=== PATIENT | male | born 1960 | race Caucasian/White ===

== ENCOUNTER 2024-10-02 01:01 | Emergency (ER) | payer OTHER ==
[2024-10-02] MEDS ORDERED: Ondansetron PF 4 MG/2 ML Vial ONE (01:21)
[2024-10-02 01:25] LABS: #Basophils 0.1 thou/uL (0.0-0.2); #Eosinophils 0.1 thou/uL (0.0-0.7); #Lymphocytes 3.3 thou/uL (1.20-3.40); #Monocytes 0.7 thou/uL (0.11-0.59); #Neutrophils 4.4 thou/uL (1.40-6.50); %Basophils 1.4 % (0.0-1.0); %Eosinophils 1.4 % (0.0-10.0); %Lymphocytes 38.4 % (21.0-51.0); %Monocytes 7.8 % (0.0-10.0); %Neutrophils 50.9 % (42.0-75.0); Hematocrit 52.1 % (42.0-52.0); Hemoglobin 18.1 g/dL (14.0-18.0); Mean Corpuscular HGB CONC 34.6 g/dL (32.0-36.0); Mean Corpuscular Hemoglobin 30.3 pg (27.0-31.0); Mean Corpuscular Volume 87.5 fl (78.0-98.0); Mean Platelet Volume 7.4 fL (7.4-10.4); Platelet Count 296 10x3/uL (130-400); RBC Distribution Width 11.3 % (11.5-14.5); Red Blood Cell (RBC) Count 5.95 mill/uL (4.70-6.10); White Blood Cell (WBC) Count 8.6 10x3/uL (4.8-10.8)
[2024-10-02 01:36] LABS: ALT (SGPT) 102 U/L (8-55); AST (SGOT) 72 U/L (5-34); Albumin 4.5 g/dL (3.4-4.8); Alkaline Phosphatase 53 U/L (40-110); Anion Gap 18 mmol/L (10-20); BUN (Urea Nitrogen) 16 mg/dL (8.4-25.7); Bilirubin, Total 0.7 mg/dL (0.2-1.2); Calc. Creatinine Clearance 0 mL/min (70-130); Carbon Dioxide 24 mmol/L (23-31); Chloride 100 mmol/L (98-107); Estimated GFR 66; Globulin 3.3 g/dL (2.4-3.5); Glucose 376 mg/dL (80-115); PTT 25.8 sec (22.9-36.1); Potassium 4.2 mmol/L (3.5-5.1); Protein, Total 7.8 g/dL (5.8-8.1); Prothrombin Time 12.8 sec (12.0-14.7); Sodium 138 mmol/L (136-145)
[2024-10-02 01:44] LABS: Troponin I 0.506 ng/mL (< 0.028)
[2024-10-02] MEDS ORDERED: Sodium Chloride 0.9% 1,000 ML ONE (01:46)
[2024-10-02] MEDS ORDERED: Aspirin Chewable 81 MG TAB ONE (04:07)
[2024-10-02] MEDS ORDERED: Heparin 10,000 UNITS/ 10 ML VIAL ONE (04:08)
[2024-10-02] MEDS ORDERED: Heparin 25,000 units/D5W 500 ML ONE (04:08)
[2024-10-02] MEDS ORDERED: Nitroglycerin 50 MG/250 ML BOT 0 ML ONE (04:08)
[2024-10-02] MEDS ORDERED: Nitroglycerin 0.4 MG TAB 1 EACH ONE (04:08)
== END 2024-10-02 01:53 | disposition short-term general hospital (02) ==
LOC: NAV ERS 01:01
DX: I21.19 ST elevation (STEMI) myocardial infarction involving other coronary artery of inferior wall (principal)
CPT/HCPCS: 71045; 80053; 84484; 85025; 85610; 85730; 86850; 86900; 86901; 93005; 94760; 96374; 96375; J1644; J2405; J7030

== ENCOUNTER 2024-10-06 10:49 | Emergency (ER) | payer OTHER ==
[2024-10-06 11:08] LABS: #Basophils 0.1 thou/uL (0.0-0.2); #Eosinophils 0.1 thou/uL (0.0-0.7); #Lymphocytes 1.8 thou/uL (1.20-3.40); #Monocytes 0.7 thou/uL (0.11-0.59); #Neutrophils 3.4 thou/uL (1.40-6.50); %Basophils 1.5 % (0.0-1.0); %Eosinophils 1.9 % (0.0-10.0); %Lymphocytes 29.8 % (21.0-51.0); %Monocytes 11.4 % (0.0-10.0); %Neutrophils 55.5 % (42.0-75.0); Hematocrit 54.3 % (42.0-52.0); Mean Corpuscular HGB CONC 33.1 g/dL (32.0-36.0); Mean Corpuscular Hemoglobin 29.5 pg (27.0-31.0); Mean Corpuscular Volume 89.1 fl (78.0-98.0); Mean Platelet Volume 7.8 fL (7.4-10.4); Platelet Count 334 10x3/uL (130-400); RBC Distribution Width 11.7 % (11.5-14.5); Red Blood Cell (RBC) Count 6.09 mill/uL (4.70-6.10); White Blood Cell (WBC) Count 6.1 10x3/uL (4.8-10.8)
[2024-10-06 11:29] LABS: Prothrombin Time 12.8 sec (12.0-14.7)
[2024-10-06 11:36] LABS: ALT (SGPT) 47 U/L (8-55); AST (SGOT) 22 U/L (5-34); Albumin 4.3 g/dL (3.4-4.8); Alkaline Phosphatase 59 U/L (40-110); Anion Gap 16 mmol/L (10-20); BUN (Urea Nitrogen) 16 mg/dL (8.4-25.7); Bilirubin, Total 0.7 mg/dL (0.2-1.2); Calc. Creatinine Clearance 0 mL/min (70-130); Calcium 10.6 mg/dL (7.8-10.44); Carbon Dioxide 25 mmol/L (23-31); Chloride 99 mmol/L (98-107); Estimated GFR 73; Globulin 3.5 g/dL (2.4-3.5); Glucose 309 mg/dL (80-115); Potassium 4.8 mmol/L (3.5-5.1); Protein, Total 7.8 g/dL (5.8-8.1); Sodium 135 mmol/L (136-145)
[2024-10-06] MEDS ORDERED: Aspirin Chewable 81 MG TAB ONE (11:36)
[2024-10-06] MEDS ORDERED: Nitroglycerin 2% Ointment 1 INCH/1 GM Packet ONE (11:37)
[2024-10-06 14:58] LABS: Troponin I 2.908 ng/mL (< 0.028)
== END 2024-10-06 15:26 | disposition short-term general hospital (02) ==
LOC: NAV ERS 10:49
DX: I24.9 Acute ischemic heart disease, unspecified (principal); R79.89 Other specified abnormal findings of blood chemistry; F17.290 Nicotine dependence, other tobacco product, uncomplicated; I25.2 Old myocardial infarction; E11.9 Type 2 diabetes mellitus without complications
CPT/HCPCS: 71045; 80053; 84484; 85025; 85610; 85730; 93005; 94760

== ENCOUNTER 2024-10-14 00:17 | Emergency (ER) | payer OTHER ==
[2024-10-14] MEDS ORDERED: Nitroglycerin 0.4 MG TAB 1 EACH ONE (00:36)
[2024-10-14] MEDS ORDERED: Aspirin Chewable 81 MG TAB ONE (00:36)
[2024-10-14] MEDS ORDERED: Pantoprazole 40 MG VIAL ONE (00:37)
[2024-10-14 00:43] LABS: Hematocrit 53.9 % (42.0-52.0); Hemoglobin 18.2 g/dL (14.0-18.0); Mean Corpuscular HGB CONC 33.7 g/dL (32.0-36.0); Mean Corpuscular Hemoglobin 29.7 pg (27.0-31.0); Mean Corpuscular Volume 88.1 fl (78.0-98.0); Mean Platelet Volume 7.5 fL (7.4-10.4); Platelet Count 359 10x3/uL (130-400); RBC Distribution Width 11.2 % (11.5-14.5); Red Blood Cell (RBC) Count 6.12 mill/uL (4.70-6.10); White Blood Cell (WBC) Count 6.3 10x3/uL (4.8-10.8)
[2024-10-14 00:52] LABS: Troponin I 0.083 ng/mL (< 0.028)
[2024-10-14 00:54] LABS: ALT (SGPT) 30 U/L (8-55); AST (SGOT) 17 U/L (5-34); Albumin 4.7 g/dL (3.4-4.8); Alkaline Phosphatase 67 U/L (40-110); Anion Gap 19 mmol/L (10-20); BUN (Urea Nitrogen) 14 mg/dL (8.4-25.7); Bilirubin, Total 0.6 mg/dL (0.2-1.2); Calc. Creatinine Clearance 0 mL/min (70-130); Calcium 10.3 mg/dL (7.8-10.44); Carbon Dioxide 25 mmol/L (23-31); Chloride 99 mmol/L (98-107); Estimated GFR 66; Globulin 3.6 g/dL (2.4-3.5); Glucose 269 mg/dL (80-115); Potassium 3.5 mmol/L (3.5-5.1); Protein, Total 8.3 g/dL (5.8-8.1); Sodium 139 mmol/L (136-145)
[2024-10-14 00:57] LABS: Eosinophils 2 % (0-10); Lymphocytes 44 % (21-51); MDiff Complete? YES; Monocytes 9 % (0-10); Neutrophil 37 % (42-75); Platelet Adequacy Comment Appears Adequate
[2024-10-14 00:58] LABS: Reactive Lymphocytes 6 % (0-10)
== END 2024-10-14 01:50 | disposition short-term general hospital (02) ==
LOC: NAV ERS 00:17
DX: R07.89 Other chest pain (principal); R03.0 Elevated blood-pressure reading, without diagnosis of hypertension; R93.1 Abnormal findings on diagnostic imaging of heart and coronary circulation; E11.9 Type 2 diabetes mellitus without complications; F17.290 Nicotine dependence, other tobacco product, uncomplicated; Z79.82 Long term (current) use of aspirin; Z79.899 Other long term (current) drug therapy
CPT/HCPCS: 71045; 80053; 84484; 85025; 93005; 96374; J2470